=== PATIENT | male | born 1960 | race Caucasian/White ===

== ENCOUNTER 2021-11-09 21:54 | Emergency (ER) | payer OTHER, MEDICAID ==
[~2021-11-09] VITALS: Ht 167.6 cm; Wt 93.0 kg
[~2021-11-09 21:54] MED LIST: SULF-59 PO; TAMS0.4C96 PO
[2021-11-09 22:00] VITALS: BP 181/92
--- NOTE | 2021-11-09 22:03 | NUR ---
TO LOBBY A/W BED AMBULATORY
[2021-11-09] MEDS ORDERED: methylPREDNISolone SS 125 MG/2 ML VIAL IM ONE (23:05)
--- NOTE | 2021-11-09 23:12 | NUR ---
61 Y/O MALE BIB SELF. PATIENT PRESENTS TO ED WITH FULL BODY RASH. PT STATES HE HAS HAD THE RASH FOR YEARS BUT HAS RECEMTLY CAUSED HIM PAIN FOR THE LAST 3 WEEKS. DENIES N/V/D; SKIN HAS RED TIGHT RASH ; AAOX4 WITH EVEN AND STEADY GAIT; LUNGS CLEAR BL; HR EVEN AND REGULAR; PT DENIES ANY FEVER, CP, SOB, OR COUGH AT THIS TIME; PATIENT STATES PAIN OF 10/10 AT THIS TIME; VSS; PATIENT POSITIONED FOR COMFORT; HOB ELEVATED; BEDRAILS UP X1; BED DOWN. ER MD MADE AWARE OF PT STATUS. HX: HTN AND DM NKDA MEDS: NON COMPLIANT
[2021-11-09] MEDS ORDERED: TRIA0.029 TP (23:22)
[2021-11-09] MEDS ORDERED: PRED5TAB7 PO (23:23)
[2021-11-09 23:42] VITALS: BP 142/80
--- NOTE | 2021-11-09 23:42 | NUR ---
Patient discharged with v/s stable. Written and verbal after care instructions given and explained. Patient alert, oriented and verbalized understanding of instructions. Ambulatory with steady gait. All questions addressed prior to discharge. ID band removed. Patient advised to follow up with PMD. Rx of Prednisone and Triamcinolone Acetonide given. Patient educated on indication of medication including possible reaction and side effects. Opportunity to ask questions provided and answered. A/OX4, VSS, STEADY GAIT, CALM DEMEANOR, UNLABORED BREATHING.
== END 2021-11-09 23:42 | disposition home or self-care (01) ==
LOC: MED 21:54
DX: L40.8 Other psoriasis (principal)
CPT/HCPCS: 96372; 99283; J2930; Q0163

== ENCOUNTER 2021-11-12 12:35 | Emergency (ER) | payer OTHER, MEDICAID ==
[~2021-11-12] VITALS: Ht 167.6 cm; Wt 95.8 kg
[~2021-11-12 12:35] MED LIST changes: +PRED5TAB7 PO; +TRIA0.029 TP
[2021-11-12 12:42] VITALS: BP 168/102
--- NOTE | 2021-11-12 13:01 | NUR ---
DR. NAVARRO BEDSIDE EVALUATING PT
--- NOTE | 2021-11-12 13:02 | NUR ---
Note undone in EDM - 11/12/21 at 1739 by [email or web address] 61 Y MALE WITH C/O RIGHT LOWER BACK THAT RADIATES DOWN HIS R LEG X YESTERADY. PT CURRENTLY DENIES DYSURIA AT THIS TIME. PT STATED PAIN IS CURRENTLY 09/05 AND IS SHARP LIKE. PT ANY TRAUMA AT THIS TIME. PT WAS SEEN HERE FOR PSORIASIS 11/09/21 . PMH: DM, HTN, PSOEIASIS NKA
--- NOTE | 2021-11-12 13:02 | NUR ---
61 Y MALE WITH C/O RIGHT LOWER BACK THAT RADIATES DOWN HIS R LEG X YESTERADY. PT CURRENTLY DENIES DYSURIA AT THIS TIME. PT STATED PAIN IS CURRENTLY 10/10 AND IS SHARP LIKE. PT ANY TRAUMA AT THIS TIME. PT WAS SEEN HERE FOR PSORIASIS 11/09/21. RASH NOTED OVER PATIENT CHEST/BACK, BILATERAL UE AND LE PMH: DM, HTN, PSOEIASIS NKA
--- NOTE | 2021-11-12 14:42 | NUR ---
LAB BEDSIDE WITH PATIENT
[2021-11-12 14:56] LABS: BASOPHILS % (AUTO) 0.2 % (0.0-2.0); EOSINOPHILS # (AUTO) 0.2 K/uL (0-0.4); EOSINOPHILS % (AUTO) 2.4 % (0.0-4.0); HEMATOCRIT 39.4 % (36-52); HEMOGLOBIN 13.8 g/dL (12.0-18.0); LYMPHOCYTES # (AUTO) 0.4 K/uL (2.0-11.5); LYMPHOCYTES % (AUTO) 6.6 % (20.5-51.1); MEAN CORPUSCULAR HEMOGLOBIN 33 pg (27-31); MEAN CORPUSCULAR HGB CONC 35 g/dL (33-37); MEAN CORPUSCULAR VOLUME 93.9 fL (80-94); MONOCYTES # (AUTO) 0.7 K/uL (0.8-1.0); MONOCYTES % (AUTO) 11.7 % (1.7-9.3); NEUTROPHILS # (AUTO) 5.1 K/uL (1.8-7.7); NEUTROPHILS % (AUTO) 79.1 % (42.2-75.2); PLATELET COUNT (AUTO) 115 K/uL (140-450); RED BLOOD CELL COUNT(AUTO) 4.19 MIL/uL (4.20-6.10); RED CELL DISTRIBUTION WIDTH 13.1 % (11.6-13.7); WHITE BLOOD COUNT (AUTO) 6.4 K/uL (4.8-10.8)
[2021-11-12 15:00] LABS: APPEARANCE,URINE CLEAR (CLEAR); BILIRUBIN,URINE NEGATIVE (NEGATIVE); BLOOD, URINE 2+ (NEGATIVE); COLOR,URINE DARK YELLOW (YELLOW); LEUKOCYTE ESTERASE ,URINE NEGATIVE (NEGATIVE); NITRITE, URINE NEGATIVE (NEGATIVE); UGLUCOSE 2+ (NEGATIVE)
[2021-11-12 15:16] LABS: ALBUMIN 3.1 g/dL (3.4-5.0); ANION GAP 11.8 (8-16); CARBON DIOXIDE 22.3 mmol/L (21-32); CREATININE 1.3 mg/dL (0.6-1.3); POTASSIUM 3.1 mmol/L (3.5-5.1); TOTAL BILIRUBIN 0.6 mg/dL (0.0-1.0)
[2021-11-12 15:21] LABS: RBC,URINE 11-20 (MOD) /HPF (0-5); WBC,URINE NONE SEEN /HPF (0-5)
--- NOTE | 2021-11-12 15:23 | NUR ---
Patient appears to be resting comfortably in bed. Vital Signs within normal limits. Respirations even and unlabored.
--- NOTE | 2021-11-12 16:02 | NUR ---
PT TAKEN TO CT VIA W/C
--- NOTE | 2021-11-12 17:38 | NUR ---
DR. LOPEZ BEDSIDE EVALUATING PT
[2021-11-12] MEDS ORDERED: DIPH25TA53 PO (17:49)
[2021-11-12] MEDS ORDERED: PRED20TA5 PO (17:49)
[2021-11-12] MEDS ORDERED: POTASSIUM CHLORIDE 10 MEQ TABER PO ONE (17:50)
[2021-11-12] MEDS ORDERED: KETOROLAC 30 MG/ML VIAL IM ONE (18:00)
[2021-11-12] MEDS ORDERED: KETOROLAC 30 MG/ML VIAL ONE (18:01)
[2021-11-12 18:06] VITALS: BP 129/93
--- NOTE | 2021-11-12 18:06 | NUR ---
Patient discharged with v/s stable. Written and verbal after care instructions given and explained. Patient alert, oriented and verbalized understanding of instructions. Ambulatory with steady gait. All questions addressed prior to discharge. ID band removed. Patient advised to follow up with PMD. Rx of BENADRYL AND PREDNISONE given. Patient educated on indication of medication including possible reaction and side effects. Opportunity to ask questions provided and answered.
== END 2021-11-12 18:06 | disposition home or self-care (01) ==
LOC: MED 12:35
DX: N20.0 Calculus of kidney (principal); L40.9 Psoriasis, unspecified; E11.9 Type 2 diabetes mellitus without complications; I10 Essential (primary) hypertension; Z79.899 Other long term (current) drug therapy
CPT/HCPCS: 36415; 74176; 80053; 81001; 85025; 85651; 86140; 96372; 99285; J1885

== ENCOUNTER 2022-02-12 13:50 | Emergency (ER) | payer OTHER, MEDICAID ==
[~2022-02-12] VITALS: Ht 167.6 cm; Wt 95.7 kg
[~2022-02-12 13:50] MED LIST changes: +DIPH25TA53 PO; +PRED20TA5 PO
[2022-02-12 13:58] VITALS: BP 151/84
--- NOTE | 2022-02-12 14:39 | NUR ---
61 Y/O MALE BIB SELF C/O GENERAL WEAKNESS, RASH OVER ENTIRE BODY FOR 8 DAYS. PAIN CURRENTLY IS RATED 10/10. PT STATES HE HAS HAD PSORIASIS FOR OVER 15 YEARS AND FEELS HE IS HAVING AN " EPISODE" OF PSORIASIS. PT STATES HE TOOK NAPROXEN FOR PAIN THIS AM WITH NO SYMPTOMATIC PAIN RELEIF. PT. HAS IMPLANNNT ON L ARM TO CHECK BLOOD SUGARS. FINGER STICK BS. PMH: DIABETES TYPE II ON INSULIN MED: INSULIN, NAPROXEN NKA
--- NOTE | 2022-02-12 15:21 | NUR ---
BLOODWORK COLLECTED AND HANDED TO PAPER CUTTING MACHINE OPERATOR BEDSIDE
--- NOTE | 2022-02-12 15:22 | NUR ---
ERIC CASTRO COLLECTED AND HANDED TO ARTIFICIAL FLOWERS DYER BEDSIDE
[2022-02-12] MEDS: GABAPENTIN 300 MG CAP PO ONE (15:36)
[2022-02-12] MEDS: diphenhydrAMINE 50 MG/ML VIAL IVP ONE (15:37)
[2022-02-12] MEDS: NACL 0.9% 1,000 ML IV ONE (15:39)
[2022-02-12 15:50] LABS: BASOPHILS % (AUTO) 0.4 % (0.0-2.0); EOSINOPHILS # (AUTO) 0.1 K/uL (0-0.4); HEMATOCRIT 36.7 % (36-52); HEMOGLOBIN 12.7 g/dL (12.0-18.0); LYMPHOCYTES # (AUTO) 0.9 K/uL (2.0-11.5); LYMPHOCYTES % (AUTO) 10.7 % (20.5-51.1); MEAN CORPUSCULAR HEMOGLOBIN 32 pg (27-31); MEAN CORPUSCULAR HGB CONC 35 g/dL (33-37); MEAN CORPUSCULAR VOLUME 93.7 fL (80-94); MONOCYTES # (AUTO) 0.8 K/uL (0.8-1.0); NEUTROPHILS # (AUTO) 6.2 K/uL (1.8-7.7); NEUTROPHILS % (AUTO) 77.9 % (42.2-75.2); PLATELET COUNT (AUTO) 172 K/uL (140-450); RED BLOOD CELL COUNT(AUTO) 3.92 MIL/uL (4.20-6.10); RED CELL DISTRIBUTION WIDTH 14.2 % (11.6-13.7)
[2022-02-12 15:57] LABS: APPEARANCE,URINE CLEAR (CLEAR); BILIRUBIN,URINE 1+ (NEGATIVE); BLOOD, URINE NEGATIVE (NEGATIVE); COLOR,URINE YELLOW (YELLOW); LEUKOCYTE ESTERASE ,URINE NEGATIVE (NEGATIVE); NITRITE, URINE NEGATIVE (NEGATIVE); UGLUCOSE NEGATIVE (NEGATIVE)
[2022-02-12 16:28] LABS: ANION GAP 13.5 (8-16); CARBON DIOXIDE 25.5 mmol/L (21-32); CREATININE 1.2 mg/dL (0.6-1.3); TOTAL BILIRUBIN 0.6 mg/dL (0.0-1.0)
[2022-02-12] MEDS: POTASSIUM CHLORIDE 10 MEQ TABER PO ONE (18:43)
--- NOTE | 2022-02-12 19:19 | NUR ---
Pt report given to LEEANNA STRINGER. Transfer of care at this time.
[2022-02-12 21:55] VITALS: BP 130/78
--- NOTE | 2022-02-12 22:11 | NUR ---
PATIENT WAS ADVISED OF DELAY IN [facility], STATES HE DID NOT WANT TO WAIT UNTIL ABLE TO TRANSPORT. STATES HE WANTS TO GO TO [facility] POV TO AVOID WAIT FOR TRANSFER. ADVISED BY ER MD OF RISKS OF LEAVING AMA AND PATIENT UNDERSTOOD AND ACCEPTED RISKS. PATIENT SIGNED RELEASE OF LIABILITY AND AGREED TO LEAVE AGAINST MEDICAL ADVICE
--- NOTE | 2022-02-12 22:13 | NUR ---
COPIES OF LABWORK AND STUDIES PROVIDED FOR PATIENT
== END 2022-02-12 22:11 | disposition left against medical advice (07) ==
LOC: MED 13:50
DX: L40.8 Other psoriasis (principal); Z20.822 Contact with and (suspected) exposure to COVID-19; E87.6 Hypokalemia
CPT/HCPCS: 36415; 80053; 81003; 84484; 85025; 87426; 93005; 96361; 96374; 99284; J1200; J7030

== ENCOUNTER 2022-03-30 08:18 | Emergency (ER) | payer OTHER, MEDICAID ==
[~2022-03-30] VITALS: Ht 170.2 cm; Wt 93.1 kg
[2022-03-30 08:24] VITALS: BP 162/78
--- NOTE | 2022-03-30 08:33 | NUR ---
PT AMB TO BED 6.
--- NOTE | 2022-03-30 08:37 | NUR ---
X-RAY AT BEDSIDE.
--- NOTE | 2022-03-30 08:43 | NUR ---
62 Y/O M BIB SELF C/O LEFT FOREARM PAIN 10/10 X YESTERDAY AFTER A FALL. NKA PMH: PSORIOSIS, DM, RA
[2022-03-30] MEDS ORDERED: IBUPROFEN 600 MG TAB PO ONE (08:55)
--- NOTE | 2022-03-30 09:26 | NUR ---
SUGARTONG WAS PLACED ON PATIENT'S LEFT ARM. ERMD NOTIFIED.
--- NOTE | 2022-03-30 09:27 | NUR ---
DR BROWNE AT BEDSIDE.
[2022-03-30] MEDS ORDERED: IBUP-2213 PO (09:52)
--- NOTE | 2022-03-30 10:02 | NUR ---
Patient discharged with v/s stable. Written and verbal after care instructions given and explained. Patient alert, oriented and verbalized understanding of instructions. Ambulatory with steady gait. All questions addressed prior to discharge. ID band removed. Patient advised to follow up with PMD. Rx of IBUPROFEN given. Opportunity to ask questions provided and answered.
== END 2022-03-30 10:02 | disposition home or self-care (01) ==
LOC: MED 08:18
DX: S52.592A Other fractures of lower end of left radius, initial encounter for closed fracture (principal); E11.9 Type 2 diabetes mellitus without complications; Z79.899 Other long term (current) drug therapy; W19.XXXA Unspecified fall, initial encounter; Y93.89 Activity, other specified; Y92.89 Other specified places as the place of occurrence of the external cause; Y99.8 Other external cause status
CPT/HCPCS: 73090; 99283

== ENCOUNTER 2022-07-27 10:30 | Emergency (ER) | payer OTHER, MEDICAID ==
[~2022-07-27] VITALS: Ht 175.3 cm; Wt 113.4 kg
[~2022-07-27 10:30] MED LIST changes: +IBUP-2213 PO
--- NOTE | 2022-07-27 10:31 | NUR ---
PT AMBULATED TO BED 05.
[2022-07-27 10:35] VITALS: BP 132/70
--- NOTE | 2022-07-27 10:42 | NUR ---
62 Y/O M BIB SELF C/O L EYE PAIN 7/10 FOR TWO DAYS AND L SIDE FACIAL AND EYE DROOPING THIS MORNING. NKA PMH: DM X1
--- NOTE | 2022-07-27 10:42 | NUR ---
DR DALEY AT BEDSIDE.
--- NOTE | 2022-07-27 11:27 | NUR ---
Speedy martel in [facility] - 07/27/22 at 1128 by MEDRJJ KARTHIK SENT TO LAB
--- NOTE | 2022-07-27 11:27 | NUR ---
PT SENT TO CT VIA W/C
[2022-07-27 12:30] VITALS: BP 118/69
--- NOTE | 2022-07-27 12:52 | NUR ---
Patient discharged with v/s stable. Written and verbal after care instructions given and explained. Patient verbalized understanding. Ambulatory with steady gait. All questions addressed prior to discharge. Advised to follow up with PMD.
== END 2022-07-27 12:52 | disposition home or self-care (01) ==
LOC: MED 10:30
DX: G51.0 Bell's palsy (principal); E11.9 Type 2 diabetes mellitus without complications; I10 Essential (primary) hypertension; Z79.899 Other long term (current) drug therapy
CPT/HCPCS: 70450; 99284

== ENCOUNTER 2023-11-22 13:11 | Emergency (ER) | payer OTHER, MEDICAID ==
[~2023-11-22] VITALS: Ht 172.7 cm; Wt 113.4 kg
[2023-11-22 13:49] VITALS: BP 136/77; PULSE 97; RESP 20; TEMP 98.2; O2SAT 98
[2023-11-22] MEDS ORDERED: KETOROLAC 30 MG/ML VIAL IVP ONE (16:20)
[2023-11-22] MEDS ORDERED: NACL 0.9% 1,000 ML IV ONE (16:20)
[2023-11-22] MEDS ORDERED: ONDANSETRON 4 MG/2 ML VIAL IVP ONE (16:20)
[2023-11-22 17:45] LABS: BASOPHILS % (AUTO) 0.5 % (0.0-2.0); EOSINOPHILS # (AUTO) 0.1 K/uL (0-0.4); EOSINOPHILS % (AUTO) 2.1 % (0.0-4.0); HEMATOCRIT 38.9 % (36-52); HEMOGLOBIN 13.5 g/dL (12.0-18.0); LYMPHOCYTES # (AUTO) 0.7 K/uL (2.0-11.5); MEAN CORPUSCULAR HEMOGLOBIN 32 pg (27-31); MEAN CORPUSCULAR HGB CONC 35 g/dL (33-37); MONOCYTES # (AUTO) 0.5 K/uL (0.8-1.0); MONOCYTES % (AUTO) 8.2 % (1.7-9.3); NEUTROPHILS % (AUTO) 78.2 % (42.2-75.2); PLATELET COUNT (AUTO) 158 K/uL (140-450); RED BLOOD CELL COUNT(AUTO) 4.22 MIL/uL (4.20-6.10); RED CELL DISTRIBUTION WIDTH 14.3 % (11.6-13.7); WHITE BLOOD COUNT (AUTO) 6.5 K/uL (4.8-10.8)
[2023-11-22 17:59] LABS: ANION GAP 13.7 (8-16); CALCIUM 9.3 mg/dL (8.5-10.1); CARBON DIOXIDE 24.1 mmol/L (21-32); POTASSIUM 3.8 mmol/L (3.5-5.1)
[2023-11-22 18:03] LABS: PARTIAL THROMBOPLASTIN TIME 25.9 secs (22-35.6); PROTHROMBIN TIME 10.5 secs (10.8-13.4)
[2023-11-22 18:53] VITALS: TEMP 97.8
[2023-11-22] MEDS ORDERED: ONDANSETRON 4 MG/2 ML VIAL ONE (18:56)
[2023-11-22] MEDS ORDERED: KETOROLAC 30 MG/ML VIAL ONE (18:57)
[2023-11-22 19:04] LABS: APPEARANCE,URINE CLEAR (CLEAR); BILIRUBIN,URINE NEGATIVE (NEGATIVE); BLOOD, URINE NEGATIVE (NEGATIVE); COLOR,URINE YELLOW (YELLOW); LEUKOCYTE ESTERASE ,URINE NEGATIVE (NEGATIVE); NITRITE, URINE NEGATIVE (NEGATIVE); PROTEIN,URINE 2+ (NEGATIVE); UGLUCOSE NEGATIVE (NEGATIVE); UROBILINOGEN,URINE 0.2 EU/dL (0.2 - 1)
[2023-11-22] MEDS ORDERED: NAPR-54 PO (19:16)
[2023-11-22] MEDS ORDERED: ONDA-188 PO (19:16)
[2023-11-22 19:50] VITALS: BP 137/85; PULSE 87; RESP 18; O2SAT 97
== END 2023-11-22 19:51 | disposition home or self-care (01) ==
LOC: MED 13:11
DX: E11.65 Type 2 diabetes mellitus with hyperglycemia (principal); M54.9 Dorsalgia, unspecified; R07.9 Chest pain, unspecified; I10 Essential (primary) hypertension; Z79.899 Other long term (current) drug therapy; Z79.1 Long term (current) use of non-steroidal anti-inflammatories (NSAID); Z79.2 Long term (current) use of antibiotics
CPT/HCPCS: 36415; 71045; 80048; 81003; 82948; 83880; 84484; 85025; 85610; 85730; 93005; 96361; 96374; 96375; 99285; J1885; J2405; J7030

== ENCOUNTER 2024-05-23 17:29 | Observation (INO) | payer OTHER, MEDICAID ==
[~2024-05-23] VITALS: Ht 167.6 cm; Wt 90.7 kg
[~2024-05-23 17:29] MED LIST changes: +NAPR-337 PO; +ONDA-188 PO
[2024-05-23 17:37] VITALS: BP 147/88; PULSE 95; RESP 16; TEMP 97.5; O2SAT 96
[2024-05-23 19:53] LABS: BASOPHILS # (AUTO) 0.1 K/uL (0.00-0.22); BASOPHILS % (AUTO) 0.7 % (0.0-2.0); EOSINOPHILS # (AUTO) 0.3 K/uL (0-0.4); EOSINOPHILS % (AUTO) 3.4 % (0.0-4.0); HEMATOCRIT 38.1 % (36-52); LYMPHOCYTES # (AUTO) 1.2 K/uL (2.0-11.5); LYMPHOCYTES % (AUTO) 14.5 % (20.5-51.1); MEAN CORPUSCULAR HEMOGLOBIN 32 pg (27-31); MEAN CORPUSCULAR HGB CONC 34 g/dL (33-37); MEAN CORPUSCULAR VOLUME 94.2 fL (80-94); MONOCYTES # (AUTO) 0.9 K/uL (0.8-1.0); MONOCYTES % (AUTO) 11.3 % (1.7-9.3); NEUTROPHILS # (AUTO) 5.8 K/uL (1.8-7.7); NEUTROPHILS % (AUTO) 70.1 % (42.2-75.2); PLATELET COUNT (AUTO) 173 K/uL (140-450); RED BLOOD CELL COUNT(AUTO) 4.04 MIL/uL (4.20-6.10); WHITE BLOOD COUNT (AUTO) 8.3 K/uL (4.8-10.8)
[2024-05-23 20:31] LABS: UREA NITROGEN, BLOOD 18 mg/dL (7-18)
[2024-05-23 20:35] LABS: ANION GAP 12.8 (8-16); GFR ARICAN-AMERICAN 78 mL/min (>90); GFR NON ARICAN-AMERICAN 65 mL/min (>90); POTASSIUM 3.7 mmol/L (3.5-5.1); SODIUM SERUM 140 mmol/L (136-145)
[2024-05-23 20:37] LABS: TOTAL BILIRUBIN 0.9 mg/dL (0.0-1.0); TOTAL PROTEIN, SERUM 7.8 g/dL (6.4-8.2)
[2024-05-23 20:42] LABS: CARBON DIOXIDE 27.9 mmol/L (21-32); CHLORIDE 103 mmol/L (98-107)
[2024-05-23 20:43] LABS: CREATININE 1.2 mg/dL (0.6-1.3); GLUCOSE 135 mg/dL (74-106)
[2024-05-23 20:44] LABS: ALANINE AMINOTRANSFERASE 47 U/L (12-78); ALBUMIN 3.6 g/dL (3.4-5.0); ALKALINE PHOSPHATASE 110 U/L (50-136); ASPARTATE AMINOTRANSFERASE 42 U/L (15-37)
[2024-05-23] MEDS: ASPIRIN 325 MG TAB PO ONE (22:03)
[2024-05-23] MEDS ORDERED: METHO (23:08)
[2024-05-23] MEDS ORDERED: IRBE300T47 PO (23:08)
[2024-05-23] MEDS ORDERED: GUSE100A SQ (23:08)
[2024-05-23] MEDS ORDERED: METH25VI SUBQ (23:08)
[2024-05-23] MEDS ORDERED: METF-350 PO (23:08)
[2024-05-24] VITALS (8 sets, daily range): BP systolic 148–163; BP diastolic 62–86; PULSE 74–92; RESP 14–22; TEMP 97.2–98.2; O2SAT 94–98
[2024-05-24] MEDS ORDERED: ONDANSETRON 4 MG/2 ML VIAL IVP PRN (06:10)
[2024-05-24] MEDS ORDERED: ACETAMINOPHEN 325 MG TAB PO PRN (06:10)
[2024-05-24] MEDS ORDERED: MAGNESIUM OXIDE 400 MG TAB PO PRN (06:10)
[2024-05-24] MEDS ORDERED: MAG SULF 2000 MG/WATER PREMIX 50 ML IV PRN (06:10)
[2024-05-24] MEDS ORDERED: KCL 20 MEQ IN 100 mL PREMIX 200 ML IV PRN (06:10)
[2024-05-24] MEDS: ATORVASTATIN 20 MG TAB PO SCH (09:00)
[2024-05-24] MEDS: ASPIRIN 81 MG TAB.CHEW PO SCH (09:00)
[2024-05-24 10:53] LABS: MAGNESIUM 1.7 mg/dL (1.8-2.4); PHOSPHORUS 3.5 mg/dL (2.5-4.9)
[2024-05-24] MEDS: BLOOD GLUCOSE MONITORING 1 DEV DEV FS SCH (11:30)
[2024-05-24] MEDS: INSULIN LISPRO SLIDING SCALE 100 UNITS/ML VIAL SUBQ PRN (15:38)
[2024-05-24] MEDS: hydrALAZINE 25 MG TAB PO SCH (15:41)
[2024-05-25] VITALS (7 sets, daily range): BP systolic 116–141; BP diastolic 70–86; PULSE 82–116; RESP 17–22; TEMP 97.6–98.3; O2SAT 94
[2024-05-25] MEDS: HYDROcodone/APAP 5/325 MG 1 TAB TAB PO PRN (03:39)
[2024-05-25 06:59] LABS: BASOPHILS % (AUTO) 0.6 % (0.0-2.0); EOSINOPHILS # (AUTO) 0.2 K/uL (0-0.4); EOSINOPHILS % (AUTO) 2.1 % (0.0-4.0); HEMATOCRIT 37.9 % (36-52); HEMOGLOBIN 13.2 g/dL (12.0-18.0); LYMPHOCYTES # (AUTO) 0.9 K/uL (2.0-11.5); LYMPHOCYTES % (AUTO) 11.9 % (20.5-51.1); MEAN CORPUSCULAR HEMOGLOBIN 33 pg (27-31); MEAN CORPUSCULAR HGB CONC 35 g/dL (33-37); MEAN CORPUSCULAR VOLUME 93.8 fL (80-94); MONOCYTES # (AUTO) 0.5 K/uL (0.8-1.0); NEUTROPHILS # (AUTO) 5.9 K/uL (1.8-7.7); NEUTROPHILS % (AUTO) 78.4 % (42.2-75.2); PLATELET COUNT (AUTO) 156 K/uL (140-450); RED BLOOD CELL COUNT(AUTO) 4.04 MIL/uL (4.20-6.10); RED CELL DISTRIBUTION WIDTH 14.5 % (11.6-13.7); WHITE BLOOD COUNT (AUTO) 7.5 K/uL (4.8-10.8)
[2024-05-25 07:14] LABS: ANION GAP 12.9 (8-16); CALCIUM 8.4 mg/dL (8.5-10.1); CARBON DIOXIDE 24.4 mmol/L (21-32); POTASSIUM 3.3 mmol/L (3.5-5.1)
[2024-05-25 07:15] LABS: CHOL/HDL RATIO 2.5 (1-4.5); MAGNESIUM 1.6 mg/dL (1.8-2.4)
[2024-05-25] MEDS: MAGNESIUM OXIDE 400 MG TAB PO SCH (11:31)
[2024-05-25] MEDS: POTASSIUM CHLORIDE 10 MEQ TABER PO PRN (11:32)
[2024-05-25] MEDS ORDERED: ATOR20TA40 PO (16:16)
[2024-05-25] MEDS ORDERED: ASPI81CT95 PO (16:16)
== END 2024-05-25 18:30 | disposition home or self-care (01) ==
LOC: MED 17:29 → MTU 05-24 06:10
PROVIDERS: ADMIT Hospitalist; ATTEND Hospitalist
DX: R07.89 Other chest pain (principal); Z20.822 Contact with and (suspected) exposure to COVID-19; E11.9 Type 2 diabetes mellitus without complications; I11.0 Hypertensive heart disease with heart failure; I50.9 Heart failure, unspecified; E66.9 Obesity, unspecified; E83.42 Hypomagnesemia; Z79.899 Other long term (current) drug therapy
CPT/HCPCS: 36415; 71045; 80048; 80053; 80061; 82948; 83735; 83880; 84100; 84484; 85025; 87081; 87426; 96372; 99285; C8929; G0378; J1644; J1815